=== PATIENT | female | born 1995 | race Caucasian/White ===

== ENCOUNTER 2018-02-28 18:27 | Inpatient (IN) | payer OTHER ==
[~2018-02-28] VITALS: Ht 160 cm; Wt 78.6 kg
[2018-02-28 18:27] VITALS: BP 160/86
[~2018-02-28 18:27] MED LIST: AMOXICILLIN500 MG PO; BIRTH CONTROL1 EAC1 PO; MOTRIN600 MG PO; NKHM; TYLENOL W/CODEI1 TA2 PO
[2018-02-28 18:52] VITALS: BP 123/76
[2018-02-28 20:23] VITALS: BP 129/85
[2018-02-28] MEDS ORDERED: MEDROL DOSEPAK4 MG PO (20:38)
[2018-02-28] MEDS ORDERED: PEPCID20 MG PO (20:38)
[2018-02-28] MEDS ORDERED: BENADRYL ALLERG25 M5 PO (20:38)
[2018-02-28 22:30] VITALS: BP 113/70
[2018-02-28] MEDS ORDERED: NEXIUM40 MG PO (23:16)
[2018-03-01] VITALS: BP 128/67
[2018-03-01 04:00] VITALS: BP 109/63
[2018-03-01 06:02] LABS: BASO % 0.1 % (0.0-1.0); HEMATOCRIT 39.8 % (37.0-47.0); HEMOGLOBIN 12.6 g/dl (12.0-16.0); LYMPH # 0.7 10*3/uL (1.3-4.4); LYMPH % 9.1 % (27.0-41.0); MEAN CELL VOLUME 87.5 fl (81.0-99.0); MEAN CORPUSCULAR HGB 27.7 pg (27.0-31.0); MEAN CORPUSCULAR HGB CONC 31.7 g/dl (33.0-37.0); MEAN PLATELET VOLUME 10.2 fl (9.6-12.3); MONO # 0.1 10*3/uL (0.1-1.0); MONO % 0.6 % (3.0-9.0); NEUT # 7.1 10*3/uL (2.3-7.9); NEUT % 89.8 % (47.0-73.0); PLATELET COUNT AUTOMATED 323 10*3/uL (130-400); RED BLOOD COUNT 4.55 10*6/uL (4.10-5.10); RED CELL DISTRI WIDTH 14.2 % (0-14.5); WHITE BLOOD COUNT 7.9 10*3/uL (4.8-10.8)
[2018-03-01 06:33] LABS: BUN 15 mg/dl (7-24); CHLORIDE 106 mmol/L (98-107); CREATININE 0.93 mg/dL (0.55-1.02); PHOSPHOROUS 2.5 mg/dL (2.5-4.9); SODIUM 140 mmol/L (136-145)
[2018-03-01 08:00] VITALS: BP 153/74
[2018-03-01 09:39] LABS: BILIRUBIN NEGATIVE (NEGATIVE); BLOOD NEGATIVE (NEGATIVE); CLARITY CLEAR (CLEAR); COLOR YELLOW (YELLOW); GLUCOSE NEGATIVE (NEGATIVE); KETONE NEGATIVE (NEGATIVE); LEUKO ESTERASE NEGATIVE (NEGATIVE); NITRITE NEGATIVE (NEGATIVE); UROBILINOGEN 0.2 E.U./dl (0.2-1.0)
[2018-03-01 12:00] VITALS: BP 118/65
[2018-03-01 16:00] VITALS: BP 124/66
[2018-03-01 20:00] VITALS: BP 117/60
[2018-03-02] VITALS: BP 108/63
[2018-03-02 04:00] VITALS: BP 96/56
[2018-03-02 05:51] LABS: ALBUMIN 3.5 gm/dl (3.1-4.5); ALKALINE PHOSPHATASE 81 U/L (45-117); BUN 12 mg/dl (7-24); CHLORIDE 111 mmol/L (98-107); CREATININE 0.79 mg/dL (0.55-1.02); POTASSIUM 3.8 mmol/L (3.5-5.1); SGOT/AST 12 IU/L (3-35); SGPT/ALT 24 U/L (12-78); SODIUM 143 mmol/L (136-145); TOTAL PROTEIN 6.8 gm/dL (6.4-8.2)
[2018-03-02 06:00] LABS: BASO % 0.2 % (0.0-1.0); EOS # 0.1 10*3/uL (0.0-0.4); EOS % 0.4 % (1.0-4.0); HEMATOCRIT 36.3 % (37.0-47.0); HEMOGLOBIN 11.3 g/dl (12.0-16.0); LYMPH # 2.9 10*3/uL (1.3-4.4); LYMPH % 23.7 % (27.0-41.0); MEAN CELL VOLUME 88.8 fl (81.0-99.0); MEAN CORPUSCULAR HGB 27.6 pg (27.0-31.0); MEAN CORPUSCULAR HGB CONC 31.1 g/dl (33.0-37.0); MEAN PLATELET VOLUME 10.5 fl (9.6-12.3); MONO # 0.7 10*3/uL (0.1-1.0); MONO % 5.8 % (3.0-9.0); NEUT # 8.6 10*3/uL (2.3-7.9); NEUT % 69.7 % (47.0-73.0); PLATELET COUNT AUTOMATED 291 10*3/uL (130-400); RED BLOOD COUNT 4.09 10*6/uL (4.10-5.10); RED CELL DISTRI WIDTH 14.9 % (0-14.5); WHITE BLOOD COUNT 12.3 10*3/uL (4.8-10.8)
[2018-03-02 08:00] VITALS: BP 109/66
[2018-03-02 12:00] VITALS: BP 108/69
[2018-03-02 16:00] VITALS: BP 119/75
[2018-03-02 20:00] VITALS: BP 118/59
[2018-03-03] VITALS: BP 104/49
[2018-03-03 04:00] VITALS: BP 109/67
[2018-03-03 06:05] LABS: BASO # 0.1 10*3/uL (0.0-0.1); BASO % 0.6 % (0.0-1.0); EOS # 0.4 10*3/uL (0.0-0.4); EOS % 4.5 % (1.0-4.0); HEMATOCRIT 36.8 % (37.0-47.0); HEMOGLOBIN 11.5 g/dl (12.0-16.0); LYMPH % 47.9 % (27.0-41.0); MEAN CELL VOLUME 88.7 fl (81.0-99.0); MEAN CORPUSCULAR HGB 27.7 pg (27.0-31.0); MEAN CORPUSCULAR HGB CONC 31.3 g/dl (33.0-37.0); MEAN PLATELET VOLUME 10.2 fl (9.6-12.3); MONO # 0.6 10*3/uL (0.1-1.0); MONO % 7.5 % (3.0-9.0); NEUT # 3.2 10*3/uL (2.3-7.9); NEUT % 39.1 % (47.0-73.0); PLATELET COUNT AUTOMATED 272 10*3/uL (130-400); RED BLOOD COUNT 4.15 10*6/uL (4.10-5.10); RED CELL DISTRI WIDTH 14.7 % (0-14.5); WHITE BLOOD COUNT 8.3 10*3/uL (4.8-10.8)
[2018-03-03 06:19] LABS: ALBUMIN 3.5 gm/dl (3.1-4.5); ALKALINE PHOSPHATASE 76 U/L (45-117); BUN 13 mg/dl (7-24); CHLORIDE 106 mmol/L (98-107); CREATININE 0.77 mg/dL (0.55-1.02); POTASSIUM 3.7 mmol/L (3.5-5.1); SGOT/AST 10 IU/L (3-35); SGPT/ALT 25 U/L (12-78); SODIUM 144 mmol/L (136-145); TOTAL PROTEIN 6.8 gm/dL (6.4-8.2)
[2018-03-03 08:00] VITALS: BP 110/75
[2018-03-03] MEDS ORDERED: LEVAQUIN750 M1 PO (09:53)
== END 2018-03-03 11:07 | disposition home or self-care (01) | DRG 871 ==
LOC: ED 18:27 → EDHOLD 21:44 → 4E 21:44 → ICCU 21:50 → 4E 03-02 13:20
PROVIDERS: Internal Medicine; Student in an Organized Health Care Education/Training Program
DX: A41.9 Sepsis, unspecified organism (principal); J18.9 Pneumonia, unspecified organism; T78.2XXA Anaphylactic shock, unspecified, initial encounter; E66.3 Overweight; L30.9 Dermatitis, unspecified; T78.40XA Allergy, unspecified, initial encounter; T78.3XXA Angioneurotic edema, initial encounter; R73.9 Hyperglycemia, unspecified; Z91.041 Radiographic dye allergy status; Z91.018 Allergy to other foods; Z88.8 Allergy status to other drugs, medicaments and biological substances; Z79.899 Other long term (current) drug therapy; Z90.89 Acquired absence of other organs; Z82.49 Family history of ischemic heart disease and other diseases of the circulatory system; Z82.61 Family history of arthritis; Z84.89 Family history of other specified conditions; Z68.30 Body mass index [BMI] 30.0-30.9, adult

== ENCOUNTER → 2018-08-05 | Outpatient (CLI) | payer OTHER ==
[~2018-08-05] MED LIST changes: +BENADRYL ALLERG25 M5 PO; +LEVAQUIN750 M1 PO; +MEDROL DOSEPAK4 MG PO; +NEXIUM40 MG PO; +PEPCID20 MG PO
== END | disposition home or self-care (01) ==
LOC: RAD 14:04
DX: M54.16 Radiculopathy, lumbar region (principal)

== ENCOUNTER 2022-05-22 18:21 | Emergency (ER) | payer OTHER ==
[2022-05-22 18:56] LABS: BASO # 0.1 10*3/uL (0.0-0.1); BASO % 0.7 % (0.0-1.0); EOS # 0.4 10*3/uL (0.0-0.4); EOS % 4.8 % (1.0-4.0); HEMATOCRIT 39.7 % (37.0-47.0); LYMPH # 2.5 10*3/uL (1.3-4.4); LYMPH % 29.6 % (27.0-41.0); MEAN CELL VOLUME 89.8 fl (81.0-99.0); MEAN CORPUSCULAR HGB 30.5 pg (27.0-31.0); MEAN PLATELET VOLUME 9.3 fl (9.6-12.3); MONO # 0.6 10*3/uL (0.1-1.0); MONO % 7.4 % (3.0-9.0); NEUT # 4.9 10*3/uL (2.3-7.9); NEUT % 57.1 % (47.0-73.0); PLATELET COUNT AUTOMATED 269 10*3/uL (130-400); RED BLOOD COUNT 4.42 10*6/uL (4.10-5.10); WHITE BLOOD COUNT 8.5 10*3/uL (4.8-10.8)
[2022-05-22 19:02] LABS: BILIRUBIN Negative (Negative); BLOOD Trace-Intact (Negative); CLARITY Cloudy (Clear); COLOR Yellow (Yellow); GLUCOSE Negative (Negative); KETONE Trace (Negative); LEUKO ESTERASE Trace (Negative); NITRITE Negative (Negative); SPECIFIC GRAVITY >= 1.030 (1.001-1.030)
[2022-05-22 19:12] LABS: ALKALINE PHOSPHATASE 59 U/L (45-117); BUN 14 mg/dl (7-24); CHLORIDE 109 mmol/L (98-107); CREATININE 0.69 mg/dL (0.55-1.02); POTASSIUM 3.7 mmol/L (3.5-5.1); SGOT/AST 15 IU/L (3-35); SGPT/ALT 30 U/L (12-78); SODIUM 138 mmol/L (136-145); TOTAL PROTEIN 7.3 gm/dL (6.4-8.2)
[2022-05-22 19:14] LABS: BACTERIA 2+; MUCOUS 1+; RBC 0-2 rbc/hpf (0-2)
== END 2022-05-22 19:52 | disposition home or self-care (01) ==
LOC: ED 18:21
PROVIDERS: Physician Assistant
DX: O46.91 Antepartum hemorrhage, unspecified, first trimester (principal); Z3A.01 Less than 8 weeks gestation of pregnancy; Z91.040 Latex allergy status; Z88.8 Allergy status to other drugs, medicaments and biological substances; Z79.899 Other long term (current) drug therapy; Z98.890 Other specified postprocedural states; Z90.89 Acquired absence of other organs

== ENCOUNTER → 2022-05-23 | Outpatient (CLI) | payer OTHER | END | disposition home or self-care (01) | LOC: US 12:51 | PROVIDERS: ATTEND Physician Assistant | DX: O46.91 Antepartum hemorrhage, unspecified, first trimester (principal); Z3A.01 Less than 8 weeks gestation of pregnancy ==

== ENCOUNTER 2022-08-16 10:58 | Emergency (ER) | payer OTHER ==
[~2022-08-16] VITALS: Ht 162.5 cm; Wt 79.4 kg
[2022-08-16] MEDS ORDERED: CLINDAMYCIN HC300 MG PO (11:47)
== END 2022-08-16 12:06 | disposition home or self-care (01) ==
LOC: ED 10:58
DX: O99.712 Diseases of the skin and subcutaneous tissue complicating pregnancy, second trimester (principal); L02.01 Cutaneous abscess of face; L03.211 Cellulitis of face; Z3A.18 18 weeks gestation of pregnancy; Z91.040 Latex allergy status; Z79.2 Long term (current) use of antibiotics

== ENCOUNTER 2023-02-01 13:21 | Emergency (ER) | payer OTHER ==
[~2023-02-01] VITALS: Wt 78.0 kg
[~2023-02-01 13:21] MED LIST changes: +CLINDAMYCIN HC300 MG PO
[2023-02-01] MEDS ORDERED: CLINDAMYCIN HC300 MG PO (14:59)
== END 2023-02-01 15:23 | disposition home or self-care (01) ==
LOC: ED 13:21
DX: L02.411 Cutaneous abscess of right axilla (principal); Z88.8 Allergy status to other drugs, medicaments and biological substances; Z91.041 Radiographic dye allergy status; Z91.040 Latex allergy status; Z79.2 Long term (current) use of antibiotics; Z79.899 Other long term (current) drug therapy; Z98.890 Other specified postprocedural states; Z90.89 Acquired absence of other organs

== ENCOUNTER → 2024-03-17 | Outpatient (CLI) | payer OTHER | END | disposition home or self-care (01) | LOC: WOUNDCARE 00:46 | PROVIDERS: ATTEND Nurse Practitioner Family | DX: L02.11 Cutaneous abscess of neck (principal); L20.82 Flexural eczema; J45.909 Unspecified asthma, uncomplicated; Z90.710 Acquired absence of both cervix and uterus; Z79.899 Other long term (current) drug therapy ==